=== PATIENT | female | born 1990 | race Caucasian/White ===

== ENCOUNTER 2017-12-18 14:47 | Emergency (ER) | payer SELFPAY ==
[2017-12-18 14:52] VITALS: BP 124/80; BMI 36.3
[2017-12-18 15:18] LABS: BILIRUBIN,URINE NEGATIVE (NEGATIVE); BLOOD/HEMOGLOBIN,URINE 3+ (NEGATIVE); GLUCOSE, URINE NEGATIVE (NEGATIVE); KETONES,URINE NEGATIVE (NEGATIVE); LEUKOCYTE ESTERASE ,URINE NEGATIVE (NEGATIVE); NITRITES,URINE NEGATIVE (NEGATIVE); PROTEIN,URINE NEGATIVE (NEGATIVE); UROBILINOGEN,URINE 1+ (NORMAL)
--- NOTE | 2017-12-18 15:25 | ED.ABDFE ---
HPI - Time seen Time seen: 15:15 - PCP Primary Care Physician: ISATU - Complaint Chief Complaint:: PT. C/O ABDOMINAL PAIN INTERMITTENTLY X 3-4 WEEKS. PAIN WORSENS AFTER EATING. PT. ALSO C/O NAUSEA. PT. STATES SHE HAD SOME VAGINAL SPOTTING WHEN WIPING AFTER URINATING TODAY. - Nurses notes reviewed Nurses Notes Review: Yes - Source History Provided: Patient - Mode of arrival Mode of Arrival: Ambulatory - Timing Onset of Chief Complaint: 11/20/17 - [facility] - Severity Severity: Moderate - Quality Quality: Aching, Colicky - Modifying Worsening Factors: Exertion - Associated signs and symptoms Associated Signs and Symptoms: Nausea PMH - PMH Past Medical History: Yes Past Medical History: Anxiety, Depression Past Medical History Comment: herpes Past Surgical History: Yes Surgical History: , [employer] Surgery Past Surgical History Comment: D&C - Family History History of Family Medical Conditions: No - Social History Does patient currently use any type of tobacco product: Yes Have you used tobacco products in the last 12 months: Yes Type of Tobacco Use: Cigarettes Does any household member use tobacco: Yes Alcohol Use: None Do you use any recreational Drugs:: No Lives With: Spouse Lives Where: Home - infectious screening In the last 2 months have you had wt loss of >10#?: NO Have you had fever, night sweats or hemotysis?: No Have you traveled outside the country in the last 6 months?: No Isolation: Standard ROS - Review of Systems Constitutional: No Symptoms Reported Eyes: No Symptoms Reported ENTM: No Symptoms Reported Respiratoy: No Symptoms Reported Cardiovascular: No Symptoms Reported Gastrointestinal/Abdominal: Abdominal Pain (right sided), Nausea Genitourinary: No Symptoms Reported Neurological: No Symptoms Reported Musculoskeletal: No Symptoms Reported Integumentary: No Symptoms Reported Hematologic/Lymphatic: No Symptoms Reported Endocrine: No Symptoms Reported Psychiatric: No Symptoms Reported PE - Vital Signs Vitals: Temperature 97.8 F Pulse Rate 63 Respiratory Rate 18 Blood Pressure 124/80 O2 Sat by Pulse Oximetry 96 - General Limitations: No Limitations, Language Barrier General Appearance: Alert, In No Apparent Distress - Head Head Exam: Normal Inspection - Eyes Eye exam: Normal Appearance - ENT ENT Exam: Normal Exam - Neck Neck Exam: Normal Inspection, Full ROM, Trachea Midline - Chest Chest Inspection: Normal Inspection - Respiratory Respiratory Exam: Normal Lung Sounds Bilat - Cardiovascular Cardiovascular Exam: Regular Rate, Normal Rhythm, +S1, +S2 - Abdominal Exam Abdominal Exam: Normal Inspection, Normal Bowel Sounds, Soft, Tenderness Abdominal Tenderness: RUQ - Rectal Rectal Exam: Deferred - Back Back Exam: Normal Inspection - Extremeties Extremities Exam: Normal Inspection, Full ROM - External Exam: Female: Deferred - Neurologic Neurological Exam: Alert, Oriented X3 - Psychiatric Psychiatric Exam: Normal Affect, Normal Mood - Skin Skin Exam: Warm, Dry, Intact ROR - Labs Reviewed Result Diagrams: 12/18/17 15:32 12/18/17 15:32 Laboratory: WBC 7.2 X10^3/uL (3.6-10.0) 12/18/17 15:32 RBC 4.65 X10^6/uL (3.5-5.4) 12/18/17 15:32 Hgb 12.7 g/dL (12.0-16.0) 12/18/17 15:32 Hct 37.1 % (36.0-47.0) 12/18/17 15:32 MCV 79.8 fL (80.0-100.0) L 12/18/17 15:32 MCH 27.4 pg (27.0-34.0) 12/18/17 15:32 MCHC 34.3 g/dL (33.0-35.0) 12/18/17 15:32 RDW 13.6 % (11.6-16.5) 12/18/17 15:32 Plt Count 239 X10^3/uL (150.0-450.0) 12/18/17 15:32 MPV 7.9 fL (7.4-11.0) 12/18/17 15:32 Neut % (Auto) 64.4 % (42.0-75.0) 12/18/17 15:32 Lymph % (Auto) 26.4 % (21.0-51.0) 12/18/17 15:32 [place] % (Auto) 6.3 % (0.0-13.0) 12/18/17 15:32 Eos % (Auto) 1.7 % (0.9-2.9) 12/18/17 15:32 Baso % (Auto) 1.2 % (0.2-1.0) H 12/18/17 15:32 Neut # (Auto) 4.7 x10^3/uL (2.2-4.8) 12/18/17 15:32 Lymph # (Auto) 1.9 X10^3/uL (1.3-2.9) 12/18/17 15:32 [place] # (Auto) 0.5 x10^3/uL (0.3-0.8) 12/18/17 15:32 Eos # (Auto) 0.1 x10^3/uL (0.0-0.2) 12/18/17 15:32 Baso # (Auto) 0.1 X10^3/uL (0.0-0.1) 12/18/17 15:32 Absolute Nucleated RBC 0.1 /100WBC 12/18/17 15:32 Sodium 140 mmol/L (136-145) 12/18/17 15:32 Corrected Sodium TNP 12/18/17 15:32 Potassium 3.8 mmol/L (3.5-5.1) 12/18/17 15:32 Chloride 105 mmol/L (98-107) 12/18/17 15:32 Carbon Dioxide 28.1 mmol/L (21-32) 12/18/17 15:32 BUN 13 mg/dL (7-18) 12/18/17 15:32 Creatinine 0.85 mg/dL (0.55-1.02) 12/18/17 15:32 Est GFR (MDRD) Af Amer > 60 (>60) 12/18/17 15:32 Est GFR (MDRD) Non-Af > 60 (>60) 12/18/17 15:32 Glucose 94 mg/dL (65-99) 12/18/17 15:32 Calcium 8.6 mg/dL (8.5-10.1) 12/18/17 15:32 Corrected Calcium TNP 12/18/17 15:32 Total Bilirubin 0.20 mg/dL (0.2-1.0) 12/18/17 15:32 AST 12 Units/L (15-37) L 12/18/17 15:32 ALT 27 Units/L (12-78) 12/18/17 15:32 Alkaline Phosphatase 65 Units/L (46-116) 12/18/17 15:32 Total Protein 7.1 g/dL (6.4-8.2) 12/18/17 15:32 Albumin 3.4 g/dL (3.4-5.0) 12/18/17 15:32 Globulin 3.7 g/dL (2.5-4.5) 12/18/17 15:32 Albumin/Globulin Ratio 0.9 Ratio (1.1-2.1) L 12/18/17 15:32 Specimen Type Clean catch urine 12/18/17 15:10 Urine Color Yellow (YELLOW) 12/18/17 15:10 Urine Appearance Clear (CLEAR) 12/18/17 15:10 Urine pH 7.0 (5.0 - 8.0) 12/18/17 15:10 Ur Specific [place] 1.015 (1.000-1.030) 12/18/17 15:10 Urine Protein Negative (NEGATIVE) 12/18/17 15:10 Urine Glucose (UA) Negative (NEGATIVE) 12/18/17 15:10 Urine Ketones Negative (NEGATIVE) 12/18/17 15:10 Urine Occult Blood 3+ (NEGATIVE) 12/18/17 15:10 Urine Nitrite Negative (NEGATIVE) 12/18/17 15:10 Urine Bilirubin Negative (NEGATIVE) 12/18/17 15:10 Urine Urobilinogen 1+ (NORMAL) 12/18/17 15:10 Ur Leukocyte Esterase Negative (NEGATIVE) 12/18/17 15:10 Urine RBC 02 - 05 /HPF (NONE SEEN) 12/18/17 15:10 Urine WBC 01 - 03 /HPF (NONE SEEN) 12/18/17 15:10 Ur Squamous Epith Cells Many /HPF (NEGATIVE) 12/18/17 15:10 Amorphous Sediment Trace /HPF (NEGATIVE) 12/18/17 15:10 Urine Bacteria Trace /HPF (NEGATIVE) 12/18/17 15:10 Urine Mucus Moderate /HPF (NEGATIVE) 12/18/17 15:10 Ur Culture Indicated? No/not indicated 12/18/17 15:10 - XRAY XRAY Interpreted by: Radiologist (punctuate, non-obstructing renal right stone) - Diagnosis Discharge Problem: Renal colic on right side - Discharge Plan Disposition: 01 HOME, SELF-CARE Condition: Stable - Follow ups/Referrals Follow ups/Referrals: SHANICE LUNSFORD [Primary Care Provider] - 3 days - Instructions Instructions: Renal Colic, [id number]
[2017-12-18 15:46] LABS: BASOPHILS # (AUTO) 0.1 X10^3/uL (0.0-0.1); BASOPHILS % (AUTO) 1.2 % (0.2-1.0); EOSINOPHILS # (AUTO) 0.1 x10^3/uL (0.0-0.2); EOSINOPHILS % (AUTO) 1.7 % (0.9-2.9); HEMATOCRIT 37.1 % (36.0-47.0); HEMOGLOBIN 12.7 g/dL (12.0-16.0); LYMPHOCYTES # (AUTO) 1.9 X10^3/uL (1.3-2.9); LYMPHOCYTES % (AUTO) 26.4 % (21.0-51.0); MEAN CORPUSCULAR HEMOGLOBIN 27.4 pg (27.0-34.0); MEAN CORPUSCULAR HGB CONC 34.3 g/dL (33.0-35.0); MEAN CORPUSCULAR VOLUME 79.8 fL (80.0-100.0); MEAN PLATELET VOLUME 7.9 fL (7.4-11.0); MONOCYTES # (AUTO) 0.5 x10^3/uL (0.3-0.8); MONOCYTES % (AUTO) 6.3 % (0.0-13.0); NEUTROPHILS # (AUTO) 4.7 x10^3/uL (2.2-4.8); NEUTROPHILS % (AUTO) 64.4 % (42.0-75.0); PLATELET COUNT 239 X10^3/uL (150.0-450.0); RED BLOOD COUNT 4.65 X10^6/uL (3.5-5.4); RED CELL DISTRIBUTION WIDTH 13.6 % (11.6-16.5); WHITE BLOOD COUNT 7.2 X10^3/uL (3.6-10.0)
[2017-12-18 15:47] LABS: APPEARANCE,URINE CLEAR (CLEAR); COLOR,URINE YELLOW (YELLOW)
[2017-12-18 15:48] LABS: AMORPHOUS SEDIMENT,UR TRACE /HPF (NEGATIVE); BACTERIA,URINE TRACE /HPF (NEGATIVE); MUCUS,URINE MODERATE /HPF (NEGATIVE); SQUAMOUS EPITHELIAL CELL,UR MANY /HPF (NEGATIVE)
[2017-12-18 15:55] LABS: ALANINE AMINOTRANSFERASE 27 Units/L (12-78); ALBUMIN 3.4 g/dL (3.4-5.0); ALKALINE PHOSPHATASE 65 Units/L (46-116); ASPARTATE AMINO TRANSFERASE 12 Units/L (15-37); BLOOD UREA NITROGEN 13 mg/dL (7-18); CALCIUM 8.6 mg/dL (8.5-10.1); CARBON DIOXIDE 28.1 mmol/L (21-32); CHLORIDE 105 mmol/L (98-107); CREATININE 0.85 mg/dL (0.55-1.02); SODIUM 140 mmol/L (136-145); TOTAL PROTEIN 7.1 g/dL (6.4-8.2); eGFR BLACK RACES > 60 (>60); eGFR NON BLACK RACES > 60 (>60)
--- NOTE | 2017-12-18 16:09 | CT ---
CT ABDOMEN AND PELVIS WITHOUT CONTRAST CLINICAL HISTORY: 27-year-old female with abdominal pain, nausea and vomiting. Worse 0.88. COMPARISON: None. TECHNIQUE: Multiple contiguous computed tomographic axial images of the abdomen and pelvis were obtai tex without the use of oral or intravenous contrast. Images were reformatted in the coronal and sagit [place] planes. FINDINGS: The lung bases demonstrate no evidence of focal air-space opacification, pleural effusion, pneumothor ax, or suspicious pulmonary nodules. The imaged inferior mediastinum and heart are normal in appeara nce without evidence of pericardial effusion. The liver, gallbladder, pancreas, and spleen are within normal limits for noncontrast imaging. Adrenal glands are unremarkable. Punctate nonobstructing right renal stone with kidneys otherwise unremarkable. There are no ureteral stones or perinephric fluid collections. There is no evidence of hydroureteronephrosis and the ureter s run in an unobstructed course to a partially distended urinary bladder. Status post hysterectomy. Vaginal cuff and adnexa are unremarkable. Multiple pelvic phleboliths. The appendix is normal in appearance. The bowel is without obstruction or inflammation and there is no free fluid or free air within the peritoneal cavity. There are no pathologically enlarged lymph n odes in the abdomen or pelvis. The arteriovascular structures are within normal limits for a study without contrast. Soft tissues are normal. The osseous structures are intact without fracture or malalignment. Mild degenerative change lumbar s pine. IMPRESSION: 1. Punctate nonobstructing right renal stone without left-sided renal or bilateral ureteral stone. 2. Normal appendix. 3. Normal gallbladder. 4. Status post hysterectomy. 5. No other acute intra-abdominal or intrapelvic process. Reported By:
== END 2017-12-18 16:35 | disposition home or self-care (01) ==
LOC: ER 14:59
DX: N23 Unspecified renal colic (principal); R10.11 Right upper quadrant pain
CPT/HCPCS: 36415; 74176; 80053; 81001; 85025; 99282; 99283; 99284